=== PATIENT | male | born 1980 | race Caucasian/White ===

== ENCOUNTER 2018-02-20 13:57 | Emergency (ER) | payer OTHER ==
[~2018-02-20] VITALS: Ht 165.1 cm; Wt 88.5 kg
[2018-02-20 14:26] VITALS: BP 186/91
--- NOTE | 2018-02-20 15:58 | ED EYE COMPLAINT ---
History of Present Illness General Chief Complaint: Eye Problems Stated Complaint: LEFT EYE INJURY Source: patient Exam Limitations: no limitations Vital Signs & Intake/Output Vital Signs & Intake/Output Vital Signs Date Time Temp Pulse Resp B/P B/P Pulse O2 O2 Flow FiO2 Mean Ox Delivery Rate 02/20 1426 97.9 86 16 186/91 97 Room Air Allergies Coded Allergies: NO KNOWN ALLERGIES (10/24/12) NKA PER ANTIBIOTIC ORDER SHEET OF 10/24/12 - [facility] Reconcile Medications Polytrim (Polytrim Eye Drops) 10,000 UNIT-1 MG/ML DROPS 1 GTT OPH Q6 CORNEAL ABRASION Triage Note: 37 Y/O MALE C/O PAIN AND TEARING TO L EYE S/P MOWING LAW TODAY. FELT SOMETHING GO IN EYE AND HAS HAD SYMPTOMS SINCE. TEARING NOTED. EVALD BY JACKIE AGUDELO IN TRIAGE Triage Nurses Notes Reviewed? yes Onset: Abrupt Duration: hour(s):, constant Timing: single episode today Injury Environment: home HPI: 37-year-old male comes into the emergency room for further evaluation of pain in the left eye. Patient reports that he was mowing the lawn and something shot up and hit him in his left eye. He said some pain and tearing since then. No vision loss. Comes in for further evaluation. Past History Travel History Traveled to [place] past 21 day No Medical History Any Pertinent Medical History? 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 No Review of Systems Review of Systems Constitutional: Reports: no symptoms. Eyes: Reports: see HPI. Ear: Reports: no symptoms. Nose: Reports: no symptoms. Mouth: Reports: no symptoms. Throat: Reports: no symptoms. Respiratory: Reports: no symptoms. Cardiovascular: Reports: no symptoms. GI: Reports: no symptoms. Genitourinary: Reports: no symptoms. Musculoskeletal: Reports: no symptoms. Skin: Reports: no symptoms. Neurological/Psychological: Reports: no symptoms. Hematologic/Endocrine: Reports: no symptoms. Immunologic/Allergic: Reports: no symptoms. All Other Systems: Reviewed and Negative Physical Exam General Appearance: well developed/nourished, mild distress General Inspection: normal inspection Eyelid: normal inspection Conjunctiva/Sclera: normal inspection Cornea: examined w/fluorescein, abrasion (conreal abrasion) EOM: intact Pupil: normal accommodation, normal pupil, PERRL Anterior Chamber: normal inspection Eye Left 1) Corneal abrasion General Inspection: normal inspection Physical Exam Head: atraumatic Nose: normal inspection Neck: normal inspection Cardiovascular/Respiratory: no respiratory distress Neurologic/Psych: awake, alert, oriented x 3, normal mood/affect Skin: intact, normal color, warm/dry Progress Differential Diagnosis: corneal abrasion, corneal foreign body, conjunctivitis, globe rupture Plan of Care: see below Departure Departure Disposition: HOME OR SELF CARE Condition: Stable Clinical Impression Primary Impression: Corneal abrasion Referrals: Hernan MCKOY,Clarence Patel DO,Ramón Joseph (PCP/Family) Additional Instructions: Use Polytrim drops as prescribed. 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 Return if any concerns worsening symptoms. Please go over all results of today's visit with your primary care doctor. Contact your primary care doctor to let them know you were here in the emergency room. There may be nonspecific findings which may not be related to your visit today here in the emergency room but may require further evaluation and chronic monitoring by your primary care doctor. If you had a laceration today the chance of foreign body always remains. You should follow-up with your primary care doctor for recheck in 3-5 days for a wound check. If you had an x-ray done there is a chance that a fracture could have been missed on initial read and you should follow-up with your primary care doctor for repeat x-rays if symptoms persist. If your blood pressure was elevated here in the emergency room please have rechecked by [facility] primary care doctor within the next 48. If you were prescribed a narcotic here in the emergency room or any type of controlled substances you're not allowed to drive while taking this medication or operate any type of heavy machinery. Narcotics can make you feel lightheaded dizziness nausea and can cause constipation. You may need to machine pecan picker a stool softener. Thank you for choosing [facility] emergency room. Please return to the emergency room immediately if you have any other concerns worsening of symptoms. Departure Forms: Customer Survey General Discharge Information Prescriptions: Current Visit Scripts Polytrim (Polytrim Eye Drops) 1 GTT OPH Q6 #10 ML Comments 02/20/2018 4:50:01 PM Patient clinically looks well. In no apparent distress. Nontoxic-appearing. Patient has corneal abrasion. Referred to [facility]. Return if any other concerns.
[2018-02-20] MEDS ORDERED: POLYTRIM EYE DR10 ML OPH (15:59)
== END 2018-02-20 16:28 ==
LOC: ERH 13:57
DX: S05.02XA Injury of conjunctiva and corneal abrasion without foreign body, left eye, initial encounter (principal); W22.8XXA Striking against or struck by other objects, initial encounter; Y92.009 Unspecified place in unspecified non-institutional (private) residence as the place of occurrence of the external cause; Y93.89 Activity, other specified